=== PATIENT | male | born 1980 | race Caucasian/White ===

== ENCOUNTER → 2019-09-04 | Outpatient (CLI) | payer OTHER ==
--- NOTE | 2019-09-05 09:38 | REP ---
MRI SACROILIAC JOINTS: Multiple sequences obtained in the axial, coronal, and sagittal planes. There is mild subchondral marrow edema in the right iliac bone and right sacrum along the right sacroiliac joint anteriorly. There is no abnormal marrow signal elsewhere particularly along the left sacroiliac joint. The sacrum itself demonstrates normal marrow signal with no occult fracture. The visualized pelvic structures appear unremarkable with no definite mass or free fluid in the visualized pelvis. IMPRESSION: Mild subchondral marrow edema anteriorly along the right sacroiliac joint, both in the sacrum and right iliac bone. Findings are compatible with mild right sided sacroiliitis. Electronically Signed by Aron Brito MD 09/05/2019 10:10 A
== END ==
LOC: M RAD 17:44
PROVIDERS: ATTEND Orthopaedic Surgery
DX: M46.1 Sacroiliitis, not elsewhere classified (principal); M53.3 Sacrococcygeal disorders, not elsewhere classified

== ENCOUNTER → 2022-06-08 | Outpatient (CLI) | payer MEDICAID | LOC: M OUTALCOH 07:43 | PROVIDERS: ATTEND Psychiatry & Neurology Psychiatry | DX: Z13.30 Encounter for screening examination for mental health and behavioral disorders, unspecified (principal) ==

== ENCOUNTER 2022-06-29 16:00 | Outpatient (RCR) | payer MEDICAID | END 2022-07-02 | LOC: M OUTALCOH 16:00 | PROVIDERS: ATTEND Psychiatry & Neurology Psychiatry | DX: F15.20 Other stimulant dependence, uncomplicated (principal); F12.10 Cannabis abuse, uncomplicated; Z72.0 Tobacco use ==

== ENCOUNTER → 2024-07-30 | Outpatient (CLI) | payer SELFPAY | LOC: M OUTALCOH 08:58 | PROVIDERS: ATTEND Psychiatry & Neurology Psychiatry | DX: Z03.89 Encounter for observation for other suspected diseases and conditions ruled out (principal) ==